=== PATIENT | male | born 1945 | race Caucasian/White ===

== ENCOUNTER → 2016-07-01 | Outpatient (CLI) | payer BC, MEDICARE ==
[~2016-07-01] MED LIST: LOSARTAN POTASS50 M1 PO; OXYCODONE HCL5 M1 PO; TRAMADOL HCL50 MG PO
[2016-07-01 08:46] LABS: HEMOGLOBIN A1c 6.3 % (4.8-5.6)
[2016-07-01 09:01] LABS: BUN 11 mg/dl (7-24); CARBON DIOXIDE 30 mmol/L (21-32); CHLORIDE 105 mmol/L (98-107); CHOLESTEROL 104 mg/dL (<200); CPK 43 U/L (39-308); EST GLOM FILT AFRICAN AMERICAN > 60 ml/min; GLUCOSE 119 mg/dL (65-99); HDL CHOLESTEROL 48 mg/dl (40-60); LDL CHOLESTEROL 41 mg/dL (9-159); POTASSIUM 3.9 mmol/L (3.5-5.1); SODIUM 144 mmol/L (136-145); TRIGLYCERIDES 76 mg/dl (<150); VLDL CHOLESTEROL 15 mg/dL (6-40)
== END | disposition home or self-care (01) ==
LOC: LAB 07:56
PROVIDERS: Family Medicine
DX: E11.65 Type 2 diabetes mellitus with hyperglycemia (principal); E78.00 Pure hypercholesterolemia, unspecified

== ENCOUNTER → 2017-01-02 | Outpatient (CLI) | payer BC, MEDICARE ==
[2017-01-02 09:11] LABS: BUN 13 mg/dl (7-24); CHLORIDE 102 mmol/L (98-107); CHOLESTEROL 130 mg/dL (<200); CREATININE 1.06 mg/dL (0.70-1.30); POTASSIUM 3.5 mmol/L (3.5-5.1); SODIUM 139 mmol/L (136-145); TRIGLYCERIDES 87 mg/dl (<150); VLDL CHOLESTEROL 17 mg/dL (6-40)
[2017-01-02 09:12] LABS: CPK 37 U/L (39-308); HDL CHOLESTEROL 52 mg/dl (40-60); LDL CHOLESTEROL 61 mg/dL (9-159)
== END | disposition home or self-care (01) ==
LOC: LAB 07:49
PROVIDERS: Family Medicine
DX: E11.9 Type 2 diabetes mellitus without complications (principal); E78.00 Pure hypercholesterolemia, unspecified

== ENCOUNTER → 2017-07-02 | Outpatient (CLI) | payer BC, MEDICARE ==
[2017-07-02 09:09] LABS: BUN 12 mg/dl (7-24); CHLORIDE 102 mmol/L (98-107); CHOLESTEROL 108 mg/dL (<200); HDL CHOLESTEROL 42 mg/dl (40-60); LDL CHOLESTEROL 45 mg/dL (9-159); POTASSIUM 3.3 mmol/L (3.5-5.1); SODIUM 139 mmol/L (136-145); TRIGLYCERIDES 103 mg/dl (<150); VLDL CHOLESTEROL 21 mg/dL (6-40)
[2017-07-03 11:05] LABS: CREATININE,URINE 157.6 mg/dL (Not Estab.); MICRO ALBUMIN/CRE RATIO 2.6 (0.0-30.0)
== END | disposition home or self-care (01) ==
LOC: LAB 07:51
PROVIDERS: Family Medicine
DX: E11.9 Type 2 diabetes mellitus without complications (principal)

== ENCOUNTER → 2017-11-18 | Day surgery (SDC) | payer BC, MEDICARE ==
[~2017-11-18] VITALS: Ht 190.5 cm; Wt 95.3 kg
[~2017-11-18] MED LIST changes: +ASPIRIN ADULT L81 M1 PO; +GLUCOPHAGE500 M1 PO; +K-TAB20 MEQ PO; +LIPITOR10 MG PO; +OMEGA 3 1,0001 EACH PO
[2017-11-18 08:32] VITALS: BP 131/81
[2017-11-18 09:55] VITALS: BP 107/66
[2017-11-18 10:09] VITALS: BP 138/77
[2017-11-18 10:25] VITALS: BP 147/76
== END | disposition home or self-care (01) ==
LOC: SDC 11-14 16:15
DX: K62.5 Hemorrhage of anus and rectum (principal); K57.30 Diverticulosis of large intestine without perforation or abscess without bleeding; K64.8 Other hemorrhoids; I10 Essential (primary) hypertension; E11.9 Type 2 diabetes mellitus without complications; Z96.651 Presence of right artificial knee joint; Z98.890 Other specified postprocedural states; Z79.84 Long term (current) use of oral hypoglycemic drugs

== ENCOUNTER → 2017-11-26 | Outpatient (CLI) | payer BC, MEDICARE | END | disposition home or self-care (01) | LOC: ORTHO 01:11 | DX: M75.112 Incomplete rotator cuff tear or rupture of left shoulder, not specified as traumatic (principal); M25.519 Pain in unspecified shoulder ==

== ENCOUNTER → 2021-12-27 | Outpatient (CLI) | payer OTHER ==
[2021-12-27 11:20] LABS: BASO % 0.6 % (0.0-1.0); EOS # 0.4 10*3/uL (0.0-0.4); EOS % 5.3 % (1.0-4.0); MEAN CELL VOLUME 86.8 fl (80.0-94.0); MEAN CORPUSCULAR HGB 29.2 pg (27.0-31.0); MEAN CORPUSCULAR HGB CONC 33.6 g/dl (33.0-37.0); MONO # 0.5 10*3/uL (0.1-1.0); MONO % 7.3 % (3.0-9.0); NEUT # 4.7 10*3/uL (2.3-7.9); NEUT % 71.5 % (47.0-73.0); PLATELET COUNT AUTOMATED 199 10*3/uL (130-400); RED BLOOD COUNT 5.07 10*6/uL (4.50-5.90); RED CELL DISTRI WIDTH 13.4 % (0-14.5); WHITE BLOOD COUNT 6.6 10*3/uL (4.8-10.8)
[2021-12-27 11:34] LABS: BILIRUBIN Negative (Negative); BLOOD Negative (Negative); CLARITY Clear (Clear); COLOR Dark Yellow (Yellow); GLUCOSE Negative (Negative); KETONE Trace (Negative); LEUKO ESTERASE Negative (Negative); NITRITE Negative (Negative)
[2021-12-27 11:45] LABS: ALKALINE PHOSPHATASE 67 U/L (45-117); BUN 11 mg/dl (7-24); CHLORIDE 104 mmol/L (98-107); CREATININE 1.18 mg/dL (0.70-1.30); POTASSIUM 3.8 mmol/L (3.5-5.1); SGOT/AST 16 IU/L (3-35); SGPT/ALT 17 U/L (12-78); SODIUM 136 mmol/L (136-145); TOTAL PROTEIN 7.5 gm/dL (6.4-8.2)
[2021-12-27 12:24] LABS: RBC 0-2 rbc/hpf (0-2); WBC 0-2 wbc/hpf (0-5)
== END | disposition home or self-care (01) ==
LOC: US 10:00 → LAB 10:04
PROVIDERS: Student in an Organized Health Care Education/Training Program; ATTEND Family Medicine
DX: N50.3 Cyst of epididymis (principal); R19.7 Diarrhea, unspecified

== ENCOUNTER → 2022-01-22 | Outpatient (CLI) | payer OTHER ==
[2022-01-22 09:47] LABS: BILIRUBIN Negative (Negative); BLOOD Negative (Negative); CLARITY Cloudy (Clear); COLOR Orange (Yellow); GLUCOSE Negative (Negative); KETONE Trace (Negative); LEUKO ESTERASE Trace (Negative); NITRITE Negative (Negative)
[2022-01-22 10:08] LABS: BACTERIA 1+; CALCIUM OXALATE CRYSTALS 4+; HYALINE CAST 0-2; WBC 0-2 wbc/hpf (0-5)
== END | disposition home or self-care (01) ==
LOC: LAB 09:04
PROVIDERS: ATTEND Nurse Practitioner Family
DX: R30.0 Dysuria (principal)

== ENCOUNTER → 2022-04-08 | Outpatient (CLI) | payer OTHER ==
[2022-04-08 15:15] LABS: BILIRUBIN Negative (Negative); BLOOD Negative (Negative); CLARITY Cloudy (Clear); COLOR Dark Yellow (Yellow); GLUCOSE Negative (Negative); KETONE Trace (Negative); LEUKO ESTERASE Negative (Negative); NITRITE Negative (Negative)
[2022-04-08 15:33] LABS: BACTERIA 1+; CALCIUM OXALATE CRYSTALS 4+; EPITHELIAL CELLS 0-2; MUCOUS 1+
[2022-04-08 15:34] LABS: WBC 0-2 wbc/hpf (0-5)
== END | disposition home or self-care (01) ==
LOC: LAB 14:49
PROVIDERS: ATTEND Nurse Practitioner Family
DX: R30.0 Dysuria (principal)

== ENCOUNTER 2023-02-19 15:49 | Emergency (ER) | payer OTHER ==
[~2023-02-19] VITALS: Ht 190.5 cm; Wt 86.2 kg
[2023-02-19 16:28] LABS: BASO % 0.3 % (0.0-1.0); EOS # 0.1 10*3/uL (0.0-0.4); EOS % 1.6 % (1.0-4.0); HEMATOCRIT 46.9 % (42.0-52.0); LYMPH # 0.7 10*3/uL (1.3-4.4); LYMPH % 8.2 % (27.0-41.0); MEAN CELL VOLUME 89.3 fl (80.0-94.0); MEAN CORPUSCULAR HGB 29.5 pg (27.0-31.0); MEAN PLATELET VOLUME 9.5 fl (9.6-12.3); MONO # 0.6 10*3/uL (0.1-1.0); MONO % 7.2 % (3.0-9.0); NEUT # 7.1 10*3/uL (2.3-7.9); NEUT % 82.4 % (47.0-73.0); PLATELET COUNT AUTOMATED 215 10*3/uL (130-400); RED BLOOD COUNT 5.25 10*6/uL (4.50-5.90); RED CELL DISTRI WIDTH 13.1 % (0-14.5); WHITE BLOOD COUNT 8.7 10*3/uL (4.8-10.8)
[2023-02-19 16:41] LABS: ACT PARTIAL THROMBO TIME 25.7 SECONDS (20.0-32.1)
[2023-02-19 16:49] LABS: LIPASE 31 U/L (12-53)
[2023-02-19 16:51] LABS: ALKALINE PHOSPHATASE 79 U/L (46-116); BUN 9 mg/dl (9-23); CHLORIDE 102 mmol/L (98-107); POTASSIUM 3.4 mmol/L (3.4-5.1); TOTAL PROTEIN 7.5 gm/dL (6.0-8.0)
[2023-02-19 17:03] LABS: SGPT/ALT < 7 U/L (5-49)
== END 2023-02-19 22:14 | disposition short-term general hospital (02) ==
LOC: ED 15:49
PROVIDERS: Emergency Medicine
DX: I21.4 Non-ST elevation (NSTEMI) myocardial infarction (principal); N17.0 Acute kidney failure with tubular necrosis; I16.0 Hypertensive urgency; R79.89 Other specified abnormal findings of blood chemistry; R11.0 Nausea; Z79.899 Other long term (current) drug therapy; Z79.82 Long term (current) use of aspirin

== ENCOUNTER → 2023-03-19 | Outpatient (CLI) | payer OTHER | END | disposition home or self-care (01) | LOC: US 01:14 | PROVIDERS: ATTEND Internal Medicine Cardiovascular Disease | DX: I73.9 Peripheral vascular disease, unspecified (principal); I25.5 Ischemic cardiomyopathy; I10 Essential (primary) hypertension; E11.9 Type 2 diabetes mellitus without complications ==

== ENCOUNTER → 2023-05-01 | Outpatient (CLI) | payer OTHER | END | disposition home or self-care (01) | LOC: CARD 02:12 | PROVIDERS: ATTEND Internal Medicine Cardiovascular Disease | DX: I35.1 Nonrheumatic aortic (valve) insufficiency (principal); I25.5 Ischemic cardiomyopathy ==

== ENCOUNTER → 2023-05-26 | Outpatient (CLI) | payer MEDICARE | END | disposition home or self-care (01) | LOC: RAD 15:33 | PROVIDERS: ATTEND Nurse Practitioner Family | DX: M47.812 Spondylosis without myelopathy or radiculopathy, cervical region (principal); R13.10 Dysphagia, unspecified ==

== ENCOUNTER 2024-03-16 10:31 | Emergency (ER) | payer MEDICARE ==
[~2024-03-16] VITALS: Ht 187.9 cm; Wt 77.1 kg
[2024-03-16 10:37] VITALS: BP 95/45
[2024-03-16] MEDS ORDERED: CARVEDILOL6.25 MG PO (10:49)
[2024-03-16] MEDS ORDERED: ASPIRIN81 M1 PO (10:49)
[2024-03-16] MEDS ORDERED: PANTOPRAZOLE SO40 MG PO (10:49)
[2024-03-16] MEDS ORDERED: LEADER NATUR1000 MCG PO (10:49)
[2024-03-16] MEDS ORDERED: ALDACTONE25 MG PO (10:49)
[2024-03-16] MEDS ORDERED: ENTRESTO 97 MG1 EACH PO (10:50)
[2024-03-16] MEDS ORDERED: ROSUVASTATIN CA20 MG PO (10:50)
[2024-03-16] MEDS ORDERED: Acetaminophen/Oxycodone 5 MG/325 MG TABLET PO ONE (11:00)
== END 2024-03-16 14:04 | disposition admitted as inpatient to this hospital (09) ==
LOC: ED 10:31 → EDHOLD 13:49 → ED 14:04
DX: M54.59 Other low back pain (principal); M25.562 Pain in left knee; M79.671 Pain in right foot; I10 Essential (primary) hypertension; E11.9 Type 2 diabetes mellitus without complications; Z53.29 Procedure and treatment not carried out because of patient's decision for other reasons; Z98.890 Other specified postprocedural states

== ENCOUNTER → 2024-06-02 | Outpatient (CLI) | payer MEDICARE ==
[~2024-06-02] MED LIST changes: +ALDACTONE25 MG PO; +ASPIRIN81 M1 PO; +CARVEDILOL6.25 MG PO; +ENTRESTO 97 MG1 EACH PO; +LEADER NATUR1000 MCG PO; +PANTOPRAZOLE SO40 MG PO; +ROSUVASTATIN CA20 MG PO
== END | disposition home or self-care (01) ==
LOC: ORTHO 01:09
PROVIDERS: ATTEND Orthopaedic Surgery
DX: M21.241 Flexion deformity, right finger joints (principal); M79.641 Pain in right hand

== ENCOUNTER → 2024-06-08 | Outpatient (CLI) | payer MEDICARE | END | disposition home or self-care (01) | LOC: NM 02:34 | PROVIDERS: ATTEND Orthopaedic Surgery | DX: M17.12 Unilateral primary osteoarthritis, left knee (principal); M25.561 Pain in right knee; M25.562 Pain in left knee; Z96.651 Presence of right artificial knee joint ==

== ENCOUNTER → 2024-06-18 | Outpatient (CLI) | payer MEDICARE | END | disposition home or self-care (01) | LOC: ORTHO 05:11 | PROVIDERS: ATTEND Orthopaedic Surgery | DX: M16.0 Bilateral primary osteoarthritis of hip (principal); G89.29 Other chronic pain ==